=== PATIENT | male | born 1965 | race Caucasian/White ===

== ENCOUNTER 2017-03-29 14:11 | Emergency (ER) | payer OTHER ==
[~2017-03-29] VITALS: Ht 172.7 cm; Wt 99.8 kg
[~2017-03-29 14:11] MED LIST: DAYPRO600 M1 PO; MEDROL DOSEPAK4 MG PO; NAPROSYN500 MG PO; NORFLEX100 MG PO; PREDNISONE20 MG PO; RESTORIL30 MG PO; ROBAXIN750 MG PO; TORADOL10 MG PO; VICODIN 5/500 505 MG PO
[2017-03-29] MEDS ORDERED: FENOFIBRATE160 MG PO (14:25)
[2017-03-29] MEDS ORDERED: LOSARTAN POTASS50 M1 PO (14:25)
== END 2017-03-29 15:52 | disposition home or self-care (01) ==
LOC: ED 14:11
DX: S60.221A Contusion of right hand, initial encounter (principal); F17.200 Nicotine dependence, unspecified, uncomplicated; Z79.899 Other long term (current) drug therapy; X58.XXXA Exposure to other specified factors, initial encounter; Y93.9 Activity, unspecified; Y92.9 Unspecified place or not applicable; Y99.9 Unspecified external cause status

== ENCOUNTER → 2018-06-09 | Outpatient (CLI) | payer BC ==
[~2018-06-09] MED LIST changes: +FENOFIBRATE160 MG PO; +LOSARTAN POTASS50 M1 PO
[2018-06-09 15:15] LABS: BILIRUBIN NEGATIVE (NEGATIVE); BLOOD TRACE-INTACT (NEGATIVE); CLARITY CLEAR (CLEAR); COLOR YELLOW (YELLOW); GLUCOSE NEGATIVE (NEGATIVE); KETONE NEGATIVE (NEGATIVE); LEUKO ESTERASE NEGATIVE (NEGATIVE); NITRITE NEGATIVE (NEGATIVE); PH 5.5 (5.0-9.0); SPECIFIC GRAVITY 1.025 (1.005-1.030); UROBILINOGEN 0.2 E.U./dl (0.2-1.0)
[2018-06-09 15:52] LABS: EPITHELIAL CELLS 0-3; WBC 0-2 wbc/hpf (0-5)
== END | disposition home or self-care (01) ==
LOC: RESCLI 15:10
PROVIDERS: Student in an Organized Health Care Education/Training Program
DX: Z23 Encounter for immunization (principal); I10 Essential (primary) hypertension; M54.12 Radiculopathy, cervical region; M25.462 Effusion, left knee; K63.5 Polyp of colon; E78.5 Hyperlipidemia, unspecified; F10.10 Alcohol abuse, uncomplicated; R00.0 Tachycardia, unspecified; R20.0 Anesthesia of skin; R51 Headache; R31.29 Other microscopic hematuria; F17.200 Nicotine dependence, unspecified, uncomplicated; Z71.6 Tobacco abuse counseling; Z76.89 Persons encountering health services in other specified circumstances

== ENCOUNTER → 2018-09-27 | Outpatient (CLI) | payer BC | END | disposition home or self-care (01) | LOC: RESCLI 13:01 | DX: I10 Essential (primary) hypertension (principal); E66.9 Obesity, unspecified; M25.511 Pain in right shoulder; R00.2 Palpitations; E78.5 Hyperlipidemia, unspecified; F17.200 Nicotine dependence, unspecified, uncomplicated; Z88.8 Allergy status to other drugs, medicaments and biological substances; Z79.899 Other long term (current) drug therapy ==

== ENCOUNTER → 2018-09-29 | Outpatient (CLI) | payer BC ==
--- NOTE | ~2018-09-29 | HM ---
[place], [place] HOLTER MONITOR REPORT NAME: JUSTIN BENNETT UNIT #: [id number] ROOM: DOCTOR: GIANNA HAN MD BIRTHDATE: [birth year] DOS: 09/29/2018 HOLTER MONITOR REPORT REASON OF HOLTER TEST: Palpitations. The patient's Holter monitor was started at 6:39 a.m. and continued for 23 hours and 59 minutes. Overall, heart rate was 76 beats per minute. Minimum heart rate was 55 beats per minute and the maximum heart rate was 117 beats per minute. There was ventricular ectopic activity noted. There were PVCs and PACs noted. The patient's rhythm included 2 minutes and 39 seconds of bradycardia. The slowest single episode of bradycardia occurred at 6:28:40 a.m. lasting 51 seconds and minimum heart rate was 55 beats per minute. The patient's tachycardia included 18 minutes and 24 seconds and fastest single episode of tachycardia occurred at 02:04:16 a.m. lasting 27 seconds and heart rate was 117 beats per minute. Supraventricular ectopic activity consisted of 15 beats of which 2 were in atrial couplets, 13 were single PACs. IMPRESSION: This is essentially normal Holter monitor with a few PACs and PVCs noted. If the patient is symptomatic, low dose beta-angelica will help. GIANNA HAN MD CM:HOLTER:HOLTER MONITOR REPORT [id number] GIANNA HAN MD
[2018-09-29 07:34] LABS: BILIRUBIN NEGATIVE (NEGATIVE); BLOOD TRACE-LYSED (NEGATIVE); CLARITY CLEAR (CLEAR); COLOR YELLOW (YELLOW); GLUCOSE NEGATIVE (NEGATIVE); KETONE NEGATIVE (NEGATIVE); LEUKO ESTERASE NEGATIVE (NEGATIVE); NITRITE NEGATIVE (NEGATIVE); PH 5.5 (5.0-9.0); SPECIFIC GRAVITY 1.025 (1.005-1.030); UROBILINOGEN 0.2 E.U./dl (0.2-1.0)
[2018-09-29 07:53] LABS: BASO # 0.1 10*3/uL (0.0-0.1); BASO % 1.3 % (0.0-1.0); EOS # 0.2 10*3/uL (0.0-0.4); EOS % 3.5 % (1.0-4.0); HEMATOCRIT 43.6 % (42.0-52.0); HEMOGLOBIN 15.1 g/dl (14.0-18.0); LYMPH # 2.4 10*3/uL (1.3-4.4); LYMPH % 35.8 % (27.0-41.0); MEAN CORPUSCULAR HGB 30.1 pg (27.0-31.0); MEAN CORPUSCULAR HGB CONC 34.6 g/dl (33.0-37.0); MEAN PLATELET VOLUME 10.6 fl (9.6-12.3); MONO # 0.5 10*3/uL (0.1-1.0); MONO % 7.5 % (3.0-9.0); NEUT # 3.5 10*3/uL (2.3-7.9); NEUT % 51.6 % (47.0-73.0); PLATELET COUNT AUTOMATED 214 10*3/uL (130-400); RED BLOOD COUNT 5.01 10*6/uL (4.50-5.90); RED CELL DISTRI WIDTH 11.9 % (0-14.5); WHITE BLOOD COUNT 6.8 10*3/uL (4.8-10.8)
[2018-09-29 07:54] LABS: ALBUMIN 3.9 gm/dl (3.1-4.5); ALKALINE PHOSPHATASE 85 U/L (45-117); BUN 12 mg/dl (7-24); CHLORIDE 110 mmol/L (98-107); CHOLESTEROL 188 mg/dL (<200); CREATININE 0.89 mg/dL (0.70-1.30); HDL CHOLESTEROL 40 mg/dl (40-60); LDL CHOLESTEROL 80 mg/dL (9-159); POTASSIUM 4.1 mmol/L (3.5-5.1); SGOT/AST 30 IU/L (3-35); SGPT/ALT 64 U/L (12-78); SODIUM 142 mmol/L (136-145); TOTAL PROTEIN 7.7 gm/dL (6.4-8.2); TRIGLYCERIDES 340 mg/dl (<150); VLDL CHOLESTEROL 68 mg/dL (6-40)
[2018-09-29 09:15] LABS: VITAMIN D, 25-HYDROXY 12.9 ng/mL (30-100)
[2018-09-29 09:35] LABS: MUCOUS TRACE; WBC 0-2 wbc/hpf (0-5)
== END | disposition home or self-care (01) ==
LOC: CARD 00:11 → LAB 00:11 → CARD 06:30
PROVIDERS: Student in an Organized Health Care Education/Training Program
DX: R00.2 Palpitations (principal); R31.29 Other microscopic hematuria; Z76.89 Persons encountering health services in other specified circumstances

== ENCOUNTER → 2020-12-20 | Outpatient (CLI) | payer OTHER ==
[2020-12-20 08:50] LABS: HEMATOCRIT 43.6 % (42.0-52.0); MEAN CELL VOLUME 88.1 fl (80.0-94.0); MEAN CORPUSCULAR HGB 30.1 pg (27.0-31.0); MEAN CORPUSCULAR HGB CONC 34.2 g/dl (33.0-37.0); RED BLOOD COUNT 4.95 10*6/uL (4.50-5.90); RED CELL DISTRI WIDTH 12.1 % (0-14.5); WHITE BLOOD COUNT 6.9 10*3/uL (4.8-10.8)
[2020-12-20 09:07] LABS: ALBUMIN 3.7 gm/dl (3.1-4.5); ALKALINE PHOSPHATASE 90 U/L (45-117); BUN 13 mg/dl (7-24); CHLORIDE 111 mmol/L (98-107); CHOLESTEROL 203 mg/dL (<200); CREATININE 0.96 mg/dL (0.70-1.30); HDL CHOLESTEROL 41 mg/dl (40-60); LDL CHOLESTEROL 109 mg/dL (9-159); POTASSIUM 4.1 mmol/L (3.5-5.1); SGOT/AST 24 IU/L (3-35); SGPT/ALT 53 U/L (12-78); SODIUM 142 mmol/L (136-145); TOTAL PROTEIN 7.7 gm/dL (6.4-8.2); TRIGLYCERIDES 267 mg/dl (<150); VLDL CHOLESTEROL 53 mg/dL (6-40)
== END | disposition home or self-care (01) ==
LOC: LAB 08:29
PROVIDERS: ATTEND Nurse Practitioner Primary Care
DX: I10 Essential (primary) hypertension (principal)

== ENCOUNTER → 2021-11-26 | Outpatient (CLI) | payer OTHER | END | disposition home or self-care (01) | LOC: RAD 16:13 | PROVIDERS: ATTEND Nurse Practitioner Primary Care | DX: M25.462 Effusion, left knee (principal) ==

== ENCOUNTER 2022-07-11 20:09 | Emergency (ER) | payer OTHER ==
[~2022-07-11] VITALS: Ht 172.7 cm; Wt 111.7 kg
[2022-07-11] MEDS ORDERED: MEDROL DOSEPAK4 MG PO (21:48)
== END 2022-07-11 22:40 | disposition home or self-care (01) ==
LOC: ED 20:09
DX: L50.8 Other urticaria (principal); Z90.49 Acquired absence of other specified parts of digestive tract; Z79.899 Other long term (current) drug therapy

== ENCOUNTER → 2024-09-22 | Outpatient (CLI) | payer OTHER | END | disposition home or self-care (01) | LOC: RAD 09:46 | PROVIDERS: ATTEND Nurse Practitioner Family | DX: M25.511 Pain in right shoulder (principal) ==